=== PATIENT | male | born 1945 | race Two or more races ===

== ENCOUNTER → 2019-01-17 | Outpatient (CLI) | payer MEDICARE ==
--- NOTE | 2019-01-17 17:33 | RAD ---
LUMBAR SPINE 2-3V DATE: 01/17/2019 12:00 AM INDICATION: Right lower extremity radiculopathy COMPARISON: None. FINDINGS: Five non-rib bearing lumbar-type vertebral bodies are present. Bones/Alignment: No evidence of acute compression fracture. There is no listhesis. Joints: Mild multilevel degenerative disc disease. Mild to moderate lower lumbar facet arthropathy. Miscellaneous: None. IMPRESSION: Mild to moderate lumbar spondylosis. Given history of right lower extremity radiculopathy, consider further evaluation with MRI of the lumbar spine. Electronically signed by: Julio C Shannon MD (01/17/2019 5:30 PM) [id number]
== END | disposition home or self-care (01) ==
LOC: RAD 11:22
PROVIDERS: ATTEND Internal Medicine
DX: M47.816 Spondylosis without myelopathy or radiculopathy, lumbar region (principal); M51.36 Other intervertebral disc degeneration, lumbar region; M12.88 Other specific arthropathies, not elsewhere classified, other specified site
CPT/HCPCS: 72100